=== PATIENT | female | born 1965 | race Caucasian/White ===

== ENCOUNTER 2024-07-03 13:47 | Emergency (ER) | payer SELFPAY ==
[~2024-07-03] VITALS: Ht 162.6 cm; Wt 85.0 kg
[2024-07-03 14:56] LABS: BASO # 0.01 K/mm3 (0.02-0.10); EOS % 1.7 % (1.0-5.0); HEMATOCRIT 41.8 % (37.0-47.0); HEMOGLOBIN 13.9 g/dL (12.5-16.0); LYMPH# 0.78 K/mm3 (1.50-4.00); MEAN CELL VOLUME 95 fl (78-100); MEAN CORPUSCULAR HEMOGLOBIN 32 pg (27-31); MEAN CORPUSCULAR HGB CONC 33 g/dL (33-37); MEAN PLATELET VOLUME 10.1 fl (7.4-10.4); MONO # 0.76 K/mm3 (0.20-0.80); NEU # 4.39 K/mm3 (1.40-6.50); PLATELET COUNT 283 K/mm3 (130-400); RED CELL DISTRIBUTION WIDTH 12.8 % (11.5-14.5); WHITE BLOOD COUNT 6.1 K/mm3 (4.8-10.8)
[2024-07-03 15:03] LABS: ALBUMIN 4.3 g/dL (3.5-5.0); SODIUM 138 mmol/L (136-145)
[2024-07-03 15:04] LABS: CALCIUM 9.7 mg/dL (8.3-10.5)
[2024-07-03 15:05] LABS: GLUCOSE 98 mg/dL (65-105); TOTAL PROTEIN 7.6 g/dL (6.4-8.3)
[2024-07-03 15:06] LABS: CARBON DIOXIDE 23 mmol/L (22-29)
[2024-07-03 15:07] LABS: TOTAL BILIRUBIN 0.3 mg/dL (0.2-1.2)
[2024-07-03] MEDS ORDERED: LISINOPRIL10 MG PO (15:09)
[2024-07-03 15:10] LABS: ALCOHOL IN-HOUSE < 10 mg/dL (<10); AST-SGOT 25 U/L (5-34)
[2024-07-03] MEDS ORDERED: NEXIUM 40MG40 MG (15:10)
[2024-07-03] MEDS ORDERED: LEVOTHYROXINE88 MCG PO (15:10)
[2024-07-03 15:12] LABS: ALT/SGPT 27 U/L (0-55)
[2024-07-03 15:13] LABS: LIPASE 15 U/L (8-78)
[2024-07-03 15:16] LABS: URINE APPEARANCE CLEAR (CLEAR); URINE BILIRUBIN NEGATIVE (NEGATIVE); URINE BLOOD TRACE-INTACT (NEGATIVE); URINE COLOR YELLOW (YELLOW); URINE GLUCOSE NEGATIVE (NEGATIVE); URINE KETONE NEGATIVE (NEGATIVE); URINE LEUKOCYTE ESTERASE 1+ (NEGATIVE); URINE MUCUS PRESENT (NOT PRESENT); URINE NITRATE NEGATIVE (NEGATIVE); URINE PROTEIN(semi-quant) NEGATIVE (NEGATIVE)
[2024-07-03 15:22] LABS: TROPONIN-I < 0.030 ng/mL (0.00-0.033)
[2024-07-03] MEDS ORDERED: Iohexol 300 - 100 ML VIAL IV ONE (15:36)
[2024-07-03] MEDS ORDERED: NS 100 ML IV ONE (15:37)
[2024-07-03] MEDS ORDERED: Ketorolac 30 MG/ML VIAL IV ONE (16:00)
[2024-07-03] MEDS ORDERED: Mag/Al Hydrox/Simeth Susp 30 ML CUP PO ONE (16:30)
[2024-07-03 16:46] LABS: URINE APPEARANCE CLEAR (CLEAR); URINE BILIRUBIN NEGATIVE (NEGATIVE); URINE BLOOD TRACE-INTACT (NEGATIVE); URINE COLOR YELLOW (YELLOW); URINE GLUCOSE NEGATIVE (NEGATIVE); URINE KETONE NEGATIVE (NEGATIVE); URINE LEUKOCYTE ESTERASE NEGATIVE (NEGATIVE); URINE MUCUS PRESENT (NOT PRESENT); URINE NITRATE NEGATIVE (NEGATIVE); URINE PROTEIN(semi-quant) NEGATIVE (NEGATIVE); URINE WBC 0-1 /hpf (0-3)
[2024-07-03 17:11] VITALS: BP 140/85
== END 2024-07-03 17:12 | disposition home or self-care (01) ==
LOC: ED 13:47
PROVIDERS: Family Medicine
DX: N20.0 Calculus of kidney (principal); F15.10 Other stimulant abuse, uncomplicated; F17.200 Nicotine dependence, unspecified, uncomplicated
CPT/HCPCS: J1885; Q9967